=== PATIENT | female | born 1995 | race Caucasian/White ===

== ENCOUNTER 2016-12-03 12:16 | Emergency (ER) | payer MEDICAID, OTHER ==
[~2016-12-03] VITALS: Ht 149.9 cm; Wt 50.0 kg
[~2016-12-03 12:16] MED LIST: IBUP600 PO; OXYC1SOL5 PO; PRENCAP6 PO
[2016-12-03 12:23] VITALS: BP 120/76; PULSE 85; RESP 17; TEMP 97.8; O2SAT 98
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
[2016-12-03] MEDS ORDERED: KETOROLAC TROMETHAMINE 60 MG/2 ML (IM) VIAL IM ONE (13:00)
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
[2016-12-03] MEDS ORDERED: IBUP-232 PO (14:23)
== END 2016-12-03 14:35 | disposition home or self-care (01) ==
LOC: NEPB 12:16
DX: S20.211A Contusion of right front wall of thorax, initial encounter (principal); M51.26 Other intervertebral disc displacement, lumbar region; X58.XXXA Exposure to other specified factors, initial encounter; Y93.F9 Activity, other caregiving; Y92.9 Unspecified place or not applicable; Y99.9 Unspecified external cause status
CPT/HCPCS: 71101; 96372; 99283; J1885